=== PATIENT | female | born 1995 | race Caucasian/White ===

== ENCOUNTER 2024-08-21 09:24 | Emergency (ER) | payer SELFPAY ==
[~2024-08-21] VITALS: Ht 160 cm; Wt 79.4 kg
[2024-08-21] MEDS ORDERED: TDAP DIPH,PERTUSS,TET VAC/PF 0.5 ML DISP.SYRIN IM ONE (09:57)
[2024-08-21] MEDS: TDAP DIPH,PERTUSS,TET VAC/PF 0.5 ML DISP.SYRIN IM ONE (10:10)
[2024-08-21] MEDS ORDERED: ACET1TAB23 PO (10:28)
[2024-08-21 10:42] VITALS: BP 140/90; TEMP 98.4; O2SAT 100
== END 2024-08-21 10:43 | disposition home or self-care (01) ==
LOC: ER 09:24
DX: S62.634A Displaced fracture of distal phalanx of right ring finger, initial encounter for closed fracture (principal); W22.8XXA Striking against or struck by other objects, initial encounter; Y93.89 Activity, other specified; Y92.89 Other specified places as the place of occurrence of the external cause; Y99.8 Other external cause status
CPT/HCPCS: 73140; 90715; A4606; A4663